=== PATIENT | female | born 1935 | race Caucasian/White ===

== ENCOUNTER 2017-01-25 11:45 | Emergency (ER) | payer MEDICARE, BC ==
[~2017-01-25] VITALS: Ht 160 cm; Wt 73.5 kg
[2017-01-25] MEDS ORDERED: ASPI81TA31 PO (11:55)
--- NOTE | 2017-01-25 12:08 | NUR ---
pt was evaluated by dr Singh. pt's wound was examined by dr Singh. surgecell dressing with gauze was applied by dr Singh. no bleeding. pt was d/c to home. d/c instructions given to the pt.
[2017-01-25 12:15] VITALS: BP 141/78
== END 2017-01-25 12:16 | disposition home or self-care (01) ==
LOC: ER 11:45
DX: Z48.01 Encounter for change or removal of surgical wound dressing (principal); Z88.2 Allergy status to sulfonamides; Z88.1 Allergy status to other antibiotic agents; Z88.8 Allergy status to other drugs, medicaments and biological substances; Z79.82 Long term (current) use of aspirin
CPT/HCPCS: A4663

== ENCOUNTER 2019-05-07 16:37 | Emergency (ER) | payer MEDICARE, BC ==
[~2019-05-07] VITALS: Ht 160 cm; Wt 72.6 kg
[~2019-05-07 16:37] MED LIST: ASPI81TA31 PO
[2019-05-07 17:22] LABS: BASOPHILS # (AUTO) 0.1 K/uL (0.0-8.0); EOSINOPHILS # (AUTO) 0.2 K/uL (0.0-0.7); EOSINOPHILS % (AUTO) 1.5 % (0.0-7.0); HEMATOCRIT 42.3 % (31.2-41.9); HEMOGLOBIN 14.1 g/dL (10.9-14.3); LYMPHOCYTES # (AUTO) 4.1 K/uL (20.0-40.0); LYMPHOCYTES % (AUTO) 33.5 % (20.5-51.5); MEAN CORPUSCULAR HEMOGLOBIN 33.3 uug (24.7-32.8); MEAN CORPUSCULAR HGB CONC 33 g/dL (32.3-35.6); MEAN CORPUSCULAR VOLUME 99.6 fL (75.5-95.3); MONOCYTES # (AUTO) 1.4 K/uL (2.0-10.0); MONOCYTES % (AUTO) 11.4 % (0.0-11.0); NEUTROPHILS # (AUTO) 6.4 K/uL (1.8-8.9); NEUTROPHILS % (AUTO) 52.6 % (38.5-71.5); PLATELET COUNT (AUTO) 176 K/uL (179-408); RED BLOOD CELL COUNT(AUTO) 4.25 MIL/uL (3.63-4.92); WHITE BLOOD COUNT (AUTO) 12.2 K/uL (3.8-11.8)
--- NOTE | 2019-05-07 18:41 | NUR ---
PATIENT TO ER FOR BLEEDING FROMNOSE HAD RECENT NASAL SURGERY BEING D/C HOME WITH INSTRUCTIONS FOR FOLLOW UP WITH SURGEON IN AM SPOUSE AT THE BEDSIDE WITH PATIENT VERBALIZE UNDERSTANDING OF INSTRUCTIONS.
[2019-05-07 18:44] VITALS: BP 154/78
== END 2019-05-07 18:49 | disposition home or self-care (01) ==
LOC: ER 16:39
DX: J95.860 Postprocedural hematoma of a respiratory system organ or structure following a respiratory system procedure (principal); D72.829 Elevated white blood cell count, unspecified; I10 Essential (primary) hypertension; Z88.2 Allergy status to sulfonamides; Z88.1 Allergy status to other antibiotic agents; Z88.8 Allergy status to other drugs, medicaments and biological substances; Z79.82 Long term (current) use of aspirin
CPT/HCPCS: 36415; 85025; 85730; A4663

== ENCOUNTER 2019-05-07 20:08 | Emergency (ER) | payer MEDICARE, BC ==
[~2019-05-07] VITALS: Ht 160 cm; Wt 73.9 kg
--- NOTE | 2019-05-07 20:49 | NUR ---
patient [facility]. patient cheif complaint of left nose bleed to left nostril. patient stated she recently done procedure with personal filter cloth maker of removal for skin cancer.
--- NOTE | 2019-05-07 21:00 | NUR ---
Dr. Holder at bedside providing treatment.
--- NOTE | 2019-05-07 22:14 | NUR ---
PATIENT ASSISTED TO THE BATHROOM
--- NOTE | 2019-05-07 22:15 | NUR ---
Patient discharged to home in stable conditon. Written and verbal after care instructions given. Patient verbalizes understanding of instructions. patient self ambulatory with steady gait but escorted to car via wheel chair with Gustavo bazan. patient is alert and oriented x3. patient denies any pain or discomfort at this time. patient was seen and evaluated by ER MD prior to discharge.
[2019-05-07 22:20] VITALS: BP 155/62
== END 2019-05-07 22:20 | disposition home or self-care (01) ==
LOC: ER 20:12
DX: J95.830 Postprocedural hemorrhage of a respiratory system organ or structure following a respiratory system procedure (principal); I10 Essential (primary) hypertension; Z88.2 Allergy status to sulfonamides; Z88.1 Allergy status to other antibiotic agents; Z88.8 Allergy status to other drugs, medicaments and biological substances; Z79.82 Long term (current) use of aspirin
CPT/HCPCS: 99283; J3490; A4663